=== PATIENT | male | born 1970 | race Two or more races ===

== ENCOUNTER 2018-11-27 14:59 | Emergency (ER) | payer SELFPAY ==
[~2018-11-27] VITALS: Ht 165.1 cm; Wt 75.4 kg
--- NOTE | 2018-11-27 15:21 | NUR ---
PATIENT PRESENTS TO ED TODAY FOR LEFT LOWER/UPPER ABD PAIN X 3 DAYS. DENIES N/V/D. AMHARIC SPEAKING, FAMILY AT BEDSIDE. AWAITING MD ORDERS, CALL LIGHT WITHIN REACH,
--- NOTE | 2018-11-27 16:03 | NUR ---
PATIENT PROVIDED URINAL, PATIENT AMB WITH STEADY GAIT TO BATHROOM TO PROVIDE SAMPLE.
--- NOTE | 2018-11-27 16:15 | NUR ---
UA COLLECTED AND SENT TO LAB. US AT PATIENT BEDSIDE, VS UPDATED IN CHART, NADN.
[2018-11-27 16:24] LABS: MICROSCOPIC NOT IND
[2018-11-27 16:55] LABS: CULTURE INDICATED? NO
[2018-11-27 17:11] VITALS: BP 117/85
[2018-11-27 17:11] LABS: BASOPHILS # (AUTO) 0.02 x10^3/uL (0-0.1); BASOPHILS % (AUTO) 0 % (0-1); EOSINOPHILS # (AUTO) 0.13 x10^3/uL (0-0.4); EOSINOPHILS % (AUTO) 2 % (1-7); LYMPHOCYTES # (AUTO) 1.02 x10^3/uL (1-3.4); LYMPHOCYTES % (AUTO) 14 % (22-44); MD NO; MEAN CORPUSCULAR HEMOGLOBIN 29.5 pg (27.5-34.5); MEAN CORPUSCULAR HGB CONC 33.8 g/dL (33.2-36.2); MEAN CORPUSCULAR VOLUME 87.3 fL (81-97); MEAN PLATELET VOLUME 9.4 fL (7.4-10.4); MONOCYTES # (AUTO) 0.42 x10^3/uL (0.2-0.8); MONOCYTES % (AUTO) 6 % (2-9); NEUTROPHILS # (AUTO) 5.57 x10^3/uL (1.8-6.8); NEUTROPHILS % (AUTO) 78 % (42-75); PLATELET COUNT 226 x10^3/uL (130-400); RED BLOOD COUNT 5.34 x10^6/uL (4.38-5.82); RED CELL DISTRIBUTION WIDTH 12.6 % (9.4-14.8)
[2018-11-27 17:21] LABS: ALANINE AMINOTRANSFERASE 32 U/L (12-78); ALBUMIN 3.8 g/dL (3.4-5.0); ANION GAP 5 mmol/L (5-15); CALCIUM 8.3 mg/dL (8.5-10.1); CHLORIDE 109 mmol/L (98-107); CREATININE 0.96 mg/dL (0.7-1.3)
[2018-11-27 17:23] LABS: ALKALINE PHOSPHATASE 91 U/L (45-117); BILIRUBIN,TOTAL 1.1 mg/dL (0.2-1.0); TOTAL PROTEIN 7.4 g/dL (6.4-8.2)
--- NOTE | 2018-11-27 17:33 | NUR ---
PATIENT TRANSFERRED TO ROOM 37 AT THIS TIME, VS UPDATED IN CHART, NADN. ALL RESULTS BACK EXCEPT LABS, AWAITING LAB RESULTS.
--- NOTE | 2018-11-27 18:06 | NUR ---
Patient/Caregiver given discharge instructions and they have confirmed that they understand the instructions. Patient ambulatory with steady gait.
== END 2018-11-27 18:08 | disposition home or self-care (01) ==
LOC: ED 16:54
DX: R10.32 Left lower quadrant pain (principal)
CPT/HCPCS: 36415; 76770; 80053; 81003; 85025; 99284